=== PATIENT | female | born 1980 | race Hispanic/Latino ===

== ENCOUNTER → 2018-06-01 | Outpatient (CLI) | payer OTHER | END | disposition home or self-care (01) | LOC: OIH 16:18 | PROVIDERS: ATTEND Internal Medicine | DX: M50.122 Cervical disc disorder at C5-C6 level with radiculopathy (principal); M62.838 Other muscle spasm; Z87.891 Personal history of nicotine dependence | CPT/HCPCS: 72050 ==

== ENCOUNTER → 2024-01-19 | Outpatient (CLI) | payer BC | END | disposition home or self-care (01) | LOC: OIH 11:42 | PROVIDERS: ATTEND Internal Medicine | DX: M54.16 Radiculopathy, lumbar region (principal) | CPT/HCPCS: 72100 ==